=== PATIENT | male | born 1990 | race Caucasian/White ===

== ENCOUNTER 2020-07-27 08:11 | Emergency (ER) | payer SELFPAY ==
[2020-07-27] MEDS ORDERED: CYCLOBENZAPRINE10 MG PO (08:34)
[2020-07-27] MEDS ORDERED: PREDNISONE 20MG20 MG PO (08:34)
== END 2020-07-27 08:51 | disposition home or self-care (01) ==
LOC: FER 08:11
DX: M54.5 Low back pain (principal)
CPT/HCPCS: 99283